=== PATIENT | female | born 1980 | race Caucasian/White ===

== ENCOUNTER → 2016-12-17 | Outpatient (CLI) | payer BC ==
[~2016-12-17] MED LIST: AMOX1TAB12 PO; BUPR-86 PO; IBUP-1222 PO; LEVO100T5 PO; OXYC-302 PO
== END | disposition home or self-care (01) ==
LOC: CFH 09:36
PROVIDERS: ATTEND Nurse Practitioner Family
DX: K92.1 Melena (principal); R10.9 Unspecified abdominal pain; R11.0 Nausea; R12 Heartburn
CPT/HCPCS: 76700

== ENCOUNTER → 2016-12-21 | Outpatient (CLI) | payer BC ==
[2016-12-21 12:02] LABS: ASPARTATE AMINO TRANSFERASE 14 U/L (15-37); BLOOD UREA NITROGEN 18 mg/dL (7-18)
== END | disposition home or self-care (01) ==
LOC: CLISVCS 11:22
PROVIDERS: ATTEND Nurse Practitioner Family
DX: K92.1 Melena (principal); R10.9 Unspecified abdominal pain; R11.0 Nausea; R12 Heartburn
CPT/HCPCS: 36415; 80053; 82784; 83516; 85025

== ENCOUNTER → 2017-02-26 | Outpatient (CLI) | payer BC | END | disposition home or self-care (01) | LOC: PETCFH 08:19 | PROVIDERS: ATTEND Nurse Practitioner Family | DX: K64.0 First degree hemorrhoids (principal) | CPT/HCPCS: 78227; A9537 ==